=== PATIENT | female | born 1970 | race Caucasian/White ===

== ENCOUNTER 2018-03-15 16:21 | Emergency (ER) | payer OTHER ==
[~2018-03-15] VITALS: Ht 149.9 cm; Wt 96.6 kg
[~2018-03-15 16:21] MED LIST: VALS80TA2 PO
[2018-03-15 16:31] VITALS: BP_SYST 146
[2018-03-15] MEDS: ONDANSETRON HCL 4 MG/2 ML VIAL IVP ONE (17:11)
[2018-03-15] MEDS: KETOROLAC TROMETHAMINE 30 MG VIAL IVP ONE (17:12)
[2018-03-15] MEDS: NACL 0.9% 1,000 ML IV ONE (17:12)
[2018-03-15 17:42] LABS: CALCIUM 8.9 mg/dL (8.4-11.0); CREATININE 0.78 mg/dL (0.55-1.30); POTASSIUM 3.7 mmol/L (3.5-5.1)
[2018-03-15 17:46] LABS: ALBUMIN 3.7 g/dL (3.4-4.8); TOTAL BILIRUBIN 0.3 mg/dL (0.0-1.0)
[2018-03-15 18:08] LABS: BASOPHILS # (AUTO) 0.1 K/uL (0.0-0.2); EOSINOPHILS # (AUTO) 0.2 K/uL (0.0-0.4); HEMATOCRIT 43.2 % (36-48); MEAN CORPUSCULAR VOLUME 91 fL (79.0-98.0); MONOCYTES # (AUTO) 0.4 K/uL (0.0-1.0); NEUTROPHILS # (AUTO) 5.3 K/uL (1.8-7.7); RED BLOOD CELL COUNT(AUTO) 4.77 MIL/uL (4.2-6.2)
[2018-03-15 18:18] LABS: BASOPHILS % (AUTO) 1.5 % (0.0-2.0); EOSINOPHILS % (AUTO) 2.1 % (0.0-4.0); HEMOGLOBIN 14.2 g/dL (12.0-16.0); LYMPHOCYTES # (AUTO) 2.3 K/uL (1.0-5.5); LYMPHOCYTES % (AUTO) 27.9 % (20.5-51.5); MEAN CORPUSCULAR HEMOGLOBIN 30 pg (27-31); MEAN CORPUSCULAR HGB CONC 33 % (32-36); MONOCYTES % (AUTO) 5.3 % (1.7-9.3); NEUTROPHILS % (AUTO) 63.2 % (40.0-70.0); PLATELET COUNT (AUTO) 336 K/uL (130-430); WHITE BLOOD COUNT (AUTO) 8.3 K/uL (4.8-10.8)
[2018-03-15] MEDS: MORPHINE 2 MG/ML INJ. SYRINGE IVP ONE (18:28)
[2018-03-15] MEDS ORDERED: MORPHINE 4 MG/ML INJ. SYRINGE ONE (18:33)
[2018-03-15 19:35] VITALS: BP_SYST 137
== END 2018-03-15 19:35 | disposition home or self-care (01) ==
LOC: SED 16:21
DX: R10.13 Epigastric pain (principal); I10 Essential (primary) hypertension; Z90.49 Acquired absence of other specified parts of digestive tract; Z90.710 Acquired absence of both cervix and uterus; Z88.5 Allergy status to narcotic agent
CPT/HCPCS: 36415; 74176; 80053; 81025; 83690; 85025; 96374; 96375; 99284; J1885; J2270; J2405; J7030

== ENCOUNTER 2018-12-18 17:51 | Inpatient (IN) | payer OTHER ==
[~2018-12-18] VITALS: Ht 149.9 cm; Wt 99.8 kg
[2018-12-18 17:56] VITALS: BP_SYST 148
--- NOTE | 2018-12-18 18:26 | NUR ---
Patient to ER bed 04 to gown for evaluation. Side rails up.
[2018-12-18 18:30] LABS: BASOPHILS % (AUTO) 0.4 % (0.0-2.0); EOSINOPHILS # (AUTO) 0.3 K/uL (0.0-0.4); EOSINOPHILS % (AUTO) 3.3 % (0.0-4.0); HEMATOCRIT 40.1 % (36-48); HEMOGLOBIN 13.5 g/dL (12.0-16.0); LYMPHOCYTES # (AUTO) 2.8 K/uL (1.0-5.5); LYMPHOCYTES % (AUTO) 35.6 % (20.5-51.5); MEAN CORPUSCULAR HEMOGLOBIN 30 pg (27-31); MEAN CORPUSCULAR HGB CONC 34 % (32-36); MEAN CORPUSCULAR VOLUME 89 fL (79.0-98.0); MONOCYTES # (AUTO) 0.4 K/uL (0.0-1.0); MONOCYTES % (AUTO) 5.7 % (1.7-9.3); NEUTROPHILS # (AUTO) 4.3 K/uL (1.8-7.7); PLATELET COUNT (AUTO) 297 K/uL (130-430); RED BLOOD CELL COUNT(AUTO) 4.52 MIL/uL (4.2-6.2); RED CELL DISTRIBUTION WIDTH 13.9 % (9.0-15.0); WHITE BLOOD COUNT (AUTO) 7.8 K/uL (4.8-10.8)
[2018-12-18 18:45] LABS: CALCIUM 9.2 mg/dL (8.4-11.0); CREATININE 1.02 mg/dL (0.55-1.30); POTASSIUM 3.3 mmol/L (3.5-5.1)
[2018-12-18 18:59] LABS: ALBUMIN 3.8 g/dL (3.4-4.8); TOTAL BILIRUBIN 0.3 mg/dL (0.0-1.0)
--- NOTE | 2018-12-18 19:05 | NUR ---
Received report from STONE Villagomez. All care endorsed.
[2018-12-18 19:24] LABS: CKMB RELATIVE INDEX 0.1 (0.0-2.9); CREATINE KINASE MB 4.3 ng/mL (0-3.6)
--- NOTE | 2018-12-18 20:20 | NUR ---
Pt complains of bilateral calf pain since Wednesday. Pt states she forget her phone and started to jog and noticed that both her calves started to have pain. Since then, pain has gotten worse and toes are numb. Pt states right leg is worse than left. Pt used a cane to ambulate to ED. No other injuries/complaints per patient or noted.
--- NOTE | 2018-12-18 20:25 | NUR ---
ER Dr. Weldon at bedside examining patient.
[2018-12-18] MEDS ORDERED: ACETAMINOPHEN 500 MG TABLET PO ONE (20:30)
[2018-12-18] MEDS ORDERED: NACL 0.9% 1,000 ML IV ONE (20:30)
--- NOTE | 2018-12-18 20:47 | NUR ---
Medications were given, pt tolerated well. No adverse reaction, will continue to monitor.
--- NOTE | 2018-12-18 21:25 | NUR ---
patient went to CT in stable condition.
--- NOTE | 2018-12-18 21:40 | NUR ---
Pt returned from CT in stable condition.
--- NOTE | 2018-12-18 22:53 | NUR ---
Patient wanted to speak with doctor in regards to results of CT and labs. Pt also asked for IV to be discontinued since fluids were done. IV d/c. No bleeding noted. Pt tolerated well.
[2018-12-18 23:05] LABS: CKMB RELATIVE INDEX 0.1 (0.0-2.9); CREATINE KINASE MB 4.3 ng/mL (0-3.6)
--- NOTE | 2018-12-18 23:21 | NUR ---
Dr. Weldon speaking with patient explaining results.
[2018-12-18] MEDS ORDERED: HYDR25TA4 PO (23:31)
[2018-12-18] MEDS ORDERED: LOSA25TA3 PO (23:31)
--- NOTE | 2018-12-19 01:05 | NUR ---
Patient will be admitted to care of Dr. Marti. Admitted to Telemetry unit. Will go to room 117 B. Belongings list completed. Summary report printed. Report will be given at bedside.
--- NOTE | 2018-12-19 01:05 | NUR ---
Transfer to Telemetry via ACLS protocol. Licensed nurse present. IV present no signs or symptoms of infiltration.
--- NOTE | 2018-12-19 01:13 | NUR ---
Admission Note Received patient from ER with diagnosis of Rhabdomyolysis. Initial Plan of Care discussed-patient verbalized understanding. Oriented to room, call light, pain management and safety.
[2018-12-19 01:22] VITALS: BP_SYST 132
[2018-12-19] MEDS: NACL 0.9% 1,000 ML IV SCH ×3 (01:54→20:34)
--- NOTE | 2018-12-19 01:54 | NUR ---
PAGED PAGING THE [facility] PHYSICIAN DR. ROBERTSON, SPOKE WITH
--- NOTE | 2018-12-19 02:00 | NUR ---
ADMISSION ASSESSMENT DONE. ROUTINE ADMISSION CARE PROVIDED. PLAN OF CARES DISCUSSED WITH UNDERSTANDING. WILL CALL MD FOR PAIN MEDICINES. CALL LIGHT WITHIN REACH. BED IN LOW POSITION. SINUS RHYTHM ON TELEMONITOR .WILL MONITOR CLOSELY.
--- NOTE | 2018-12-19 02:10 | NUR ---
DR. ROBERTSON ANSWERED PAGE. REPORTED PATIENT HAS SEVERE PAIN ON BOTH CALFS RT.> LEFT WITH ORDERS.
[2018-12-19] MEDS ORDERED: ACETAMINOPHEN 325 MG TABLET PO PRN (02:15)
[2018-12-19] MEDS ORDERED: ACETAMINOPHEN 500 MG TABLET PO PRN (02:15)
[2018-12-19] MEDS ORDERED: MORPHINE 2 MG/ML INJ. SYRINGE IVP PRN (02:15)
[2018-12-19] MEDS ORDERED: POTASSIUM CHLORIDE 20 MEQ TAB.PRT.SR PO ONE (02:30)
[2018-12-19] MEDS ORDERED: ONDANSETRON HCL 4 MG/2 ML VIAL IVP PRN (02:45)
--- NOTE | 2018-12-19 02:55 | NUR ---
pain: complain of damon calf pain rt.>left, level 9/10. morphine 2mg iv given.
--- NOTE | 2018-12-19 04:00 | NUR ---
patient resting well. ivf infusing, site clear.
[2018-12-19 04:45] VITALS: BP_SYST 138
--- NOTE | 2018-12-19 06:20 | NUR ---
closing: slept at long intervals. has tolerable pain this am. vital signs stable. hourly to q 2 hrly rounds done. all needs were attended. will endorse care to am rn.
[2018-12-19 08:00] VITALS: BP_SYST 126
--- NOTE | 2018-12-19 08:00 | NUR ---
Initial Note-Pt awake, alert, and oriented. Pain controlled at this time. Assisted pt to restroom using hospital walker. Gait is steady, walking only on toes on the right foot. Pt has cane from home at bedside. Safety precautions in place, bed in lowest position, call light within reach and encourage pt to use for assistance.
[2018-12-19] MEDS ORDERED: NACL 0.9% 1,000 ML IV ONE (10:00)
[2018-12-19] MEDS ORDERED: LOSARTAN POTASSIUM 25 MG TABLET PO ONE (10:15)
[2018-12-19] MEDS ORDERED: PANTOPRAZOLE SODIUM 40 MG TAB PO ONE (10:15)
--- NOTE | 2018-12-19 10:46 | NUR ---
Notes-Pt awake, resting in bed. Seen by Dr. Soto at bedside. Administered scheduled medications. No acute distress noted.
[2018-12-19 11:09] LABS: ALBUMIN 3.1 g/dL (3.4-4.8); CALCIUM 8.3 mg/dL (8.4-11.0); CREATININE 0.84 mg/dL (0.55-1.30); POTASSIUM 3.5 mmol/L (3.5-5.1); TOTAL BILIRUBIN 0.3 mg/dL (0.0-1.0)
[2018-12-19 11:52] LABS: CKMB RELATIVE INDEX 0.1 (0.0-2.9); CREATINE KINASE MB 5.4 ng/mL (0-3.6)
--- NOTE | 2018-12-19 12:00 | NUR ---
Notes-Pt awake in high fowlers position. Pt speaking on cell phone. Denies any pain or discomfort at this time. Will continue to monitor.
[2018-12-19 12:27] VITALS: BP_SYST 112
--- NOTE | 2018-12-19 14:47 | NUR ---
Notes-Pt awake, in high fowlers position watching television. Pt is complaining of moderate pain in lower right calf. Administered PRN extra strength tylenol. Will continue to monitor.
[2018-12-19 17:07] VITALS: BP_SYST 107
--- NOTE | 2018-12-19 18:34 | NUR ---
Closing Note-Pt awake, resting in bed watching television. Pain controlled at this time. No acute distress noted. Safety precautions in place, bed in lowest position, call light within reach and encourage pt to use for assistance. Walker at bedside. Will continue to monitor until pt care is endorsed to shift commander nurse.
--- NOTE | 2018-12-19 19:52 | NUR ---
Initial note: Received report from daysraadft RN. Patient is awake, watching TV in bed. Alert and oriented x4. No acute distress, tolerating 2L NC. IV site to right hand is patent and benign, receiving IV fluids well. Call light is with patient. Safety and fall precautions in place. Will continue with plan of care.
[2018-12-19 20:00] VITALS: BP_SYST 115
--- NOTE | 2018-12-19 22:59 | NUR ---
Rounds: Patient is awake, no distress noted. Even and unlabored respirations on room air. IV fluids infusing as ordered, no infiltration noted. Call light is with patient. Will continue to monitor.
[2018-12-20 00:48] VITALS: BP_SYST 113
--- NOTE | 2018-12-20 01:48 | NUR ---
Rounds: Patient is resting comfortably in bed. No distress noted. Tolerating room air, breathing is even and unlabored. Call light with patient. Will continue monitoring.
--- NOTE | 2018-12-20 04:12 | NUR ---
Rounds: Patient is resting in bed, no distress. Even, unlabored breathing on room air. IV fluids infusing as ordered. Call light with patient. Will continue monitoring.
[2018-12-20] MEDS: NACL 0.9% 1,000 ML IV SCH (04:26)
--- NOTE | 2018-12-20 06:01 | NUR ---
Closing note: Patient is sleeping in bed. No acute distress. Even, unlabored breathing on room air. IV site to right hand is patent, benign, receiving IV fluids per MD order. All needs met. Safety and fall precautions in place. Hourly rounding performed throughout shift. Will endorse care to dayshift RN.
[2018-12-20 06:17] LABS: ALANINE AMINOTRANSFERASE 58 U/L (12-78); ALBUMIN 2.8 g/dL (3.4-4.8); ASPARTATE AMINOTRANSFERASE 104 U/L (10-37); CALCIUM 8.4 mg/dL (8.4-11.0); CHLORIDE 110 mmol/L (98-107); CREATININE 0.86 mg/dL (0.55-1.30); GLUCOSE 94 mg/dL (70-99); POTASSIUM 3.6 mmol/L (3.5-5.1); SODIUM SERUM 140 mmol/L (136-145); TOTAL BILIRUBIN 0.3 mg/dL (0.0-1.0); UREA NITROGEN, BLOOD 10 mg/dL (8-21)
[2018-12-20 06:21] LABS: ANION GAP < 3 (5-15); GFR AFRICAN AMERICAN 90 mL/min (>90)
[2018-12-20 06:34] LABS: BASOPHILS % (AUTO) 0.3 % (0.0-2.0); EOSINOPHILS # (AUTO) 0.3 K/uL (0.0-0.4); EOSINOPHILS % (AUTO) 3.8 % (0.0-4.0); HEMATOCRIT 35.2 % (36-48); LYMPHOCYTES # (AUTO) 2.5 K/uL (1.0-5.5); LYMPHOCYTES % (AUTO) 36.8 % (20.5-51.5); MEAN CORPUSCULAR HEMOGLOBIN 31 pg (27-31); MEAN CORPUSCULAR HGB CONC 34 % (32-36); MEAN CORPUSCULAR VOLUME 90 fL (79.0-98.0); MONOCYTES # (AUTO) 0.4 K/uL (0.0-1.0); MONOCYTES % (AUTO) 6.1 % (1.7-9.3); NEUTROPHILS # (AUTO) 3.6 K/uL (1.8-7.7); PLATELET COUNT (AUTO) 241 K/uL (130-430); RED BLOOD CELL COUNT(AUTO) 3.92 MIL/uL (4.2-6.2); RED CELL DISTRIBUTION WIDTH 13.5 % (9.0-15.0); WHITE BLOOD COUNT (AUTO) 6.7 K/uL (4.8-10.8)
[2018-12-20 06:48] LABS: CKMB RELATIVE INDEX 0.1 (0.0-2.9); CREATINE KINASE MB 4.4 ng/mL (0-3.6)
[2018-12-20 07:53] VITALS: BP_SYST 119
--- NOTE | 2018-12-20 08:00 | NUR ---
AM NOTES: Received patient alert,awake, oriented.no s/s of distress, stated bilateral foot still numb, weakness.ivf infusing well site patent left hand #[id number]. no infiltration or swelling noted. vital sign stable,afebrile. informed about the POC. verbalized understanding. encourage to call when assistance needed. bed is low and lock position. call light within reach. will monitor.
[2018-12-20] MEDS: PANTOPRAZOLE SODIUM 40 MG TAB PO SCH (09:23)
[2018-12-20] MEDS: LOSARTAN POTASSIUM 25 MG TABLET PO SCH (09:23)
--- NOTE | 2018-12-20 10:00 | NUR ---
MD ROUNDS: seen by dr. siegel at the bedside.
--- NOTE | 2018-12-20 10:18 | NUR ---
CONSULTATION PAGED REASON FOR CONSULTATION:RHABDHO WAS CONSULT CALLED?Y PERSON WHO WAS NOTIFIED:ANIA CONSULTING PHYSICIAN:[facility] PT SPECIALTY:[facility] PT PHONE NUMBER:[phone] REQUESTING PHYSICIAN:ERIKA AGUDELO
[2018-12-20] MEDS: NACL 0.9% IV SCH ×2 (11:04→20:52)
[2018-12-20] MEDS: JECT IV SCH ×2 (11:04→20:52)
[2018-12-20] MEDS: SODIUM BICARBONATE 8.4% IV SCH ×2 (11:04→20:52)
[2018-12-20 12:15] VITALS: BP_SYST 118
--- NOTE | 2018-12-20 15:00 | NUR ---
transferred to med/ surg status.
[2018-12-20 16:50] VITALS: BP_SYST 116
--- NOTE | 2018-12-20 18:59 | NUR ---
all needs mets. no significant changes of condition noted. vital sign stable, afebrile. patient verbalized numbness and pain dull. tolerable, able to ambulate with help of walker.ivf infusing well site patent. no swelling or infiltration noted.
--- NOTE | 2018-12-20 19:30 | NUR ---
Opening notes Received report. Patient is resting in bed, no signs of distress noted. Breathing even and unlabored. IV patent and intact, infusing fluids. No needs at this time. Call light with the patient. Safety precautions in place.
[2018-12-20 20:00] VITALS: BP_SYST 132
--- NOTE | 2018-12-20 22:00 | NUR ---
Resting Patient resting in bed, talking to family. No signs of distress noted. Breathing even and unlabored. IVF infusing well. Provided patient with sandwich and apple juice. No other needs. Call light with the patient. Safety precautions in place.
--- NOTE | 2018-12-21 | NUR ---
Sleeping VSS. No signs of distress noted. Breathing even and unlabored. IVF infusing well. Call light with the patient. Safety precautions in place.
[2018-12-21 00:05] VITALS: BP_SYST 130
--- NOTE | 2018-12-21 02:34 | NUR ---
Sleeping No signs of distress noted. Breathing is even and unlabored. IVF infusing well. Call light with the patient. Safety precautions in place.
[2018-12-21] MEDS: SODIUM BICARBONATE 8.4% IV SCH (03:04)
[2018-12-21] MEDS: NACL 0.9% IV SCH (03:04)
[2018-12-21] MEDS: JECT IV SCH (03:04)
--- NOTE | 2018-12-21 04:30 | NUR ---
Sleeping No signs of distress noted. Breathing even and unlabored. IVF infusing well. Call light with the patient. Safety precautions in place.
--- NOTE | 2018-12-21 06:33 | NUR ---
Closing notes Patient resting comfortably in bed. No signs of distress noted. Breathing even and unlabored. IV patent and intact, infusing fluids. All needs met throughout the shift. Call light with the patient. Safety precautions in place. Will endorse care to day shift RN.
--- NOTE | 2018-12-21 07:35 | NUR ---
opening note patient is sitting in chair, A&Ox4, assessment completed, educated carton maker light system and plan of care, patient verbalized understanding, patient denies any pain at this time, visualized patient walking to the bathroom and she was steady, no needs addressed at this time, fall/safety precautions in place, IV fluids running.
[2018-12-21 08:05] VITALS: BP_SYST 130
[2018-12-21] MEDS: LOSARTAN POTASSIUM 25 MG TABLET PO SCH (08:21)
[2018-12-21] MEDS: PANTOPRAZOLE SODIUM 40 MG TAB PO SCH (08:21)
--- NOTE | 2018-12-21 09:15 | NUR ---
Dr Aidan adrian informed me that he will ordered lab draws for the patient, I informed the patient about this and she verbalized understanding.
[2018-12-21 09:44] LABS: HEMOGLOBIN 12.4 g/dL (12.0-16.0); MEAN CORPUSCULAR HEMOGLOBIN 30 pg (27-31); MEAN CORPUSCULAR VOLUME 89 fL (79.0-98.0); RED CELL DISTRIBUTION WIDTH 13.8 % (9.0-15.0); WHITE BLOOD COUNT (AUTO) 6.6 K/uL (4.8-10.8)
[2018-12-21 09:52] LABS: BASOPHILS % (AUTO) 0.4 % (0.0-2.0); CALCIUM 8.1 mg/dL (8.4-11.0); CREATININE 0.87 mg/dL (0.55-1.30); EOSINOPHILS # (AUTO) 0.2 K/uL (0.0-0.4); EOSINOPHILS % (AUTO) 3.3 % (0.0-4.0); HEMATOCRIT 36.5 % (36-48); LYMPHOCYTES # (AUTO) 1.8 K/uL (1.0-5.5); LYMPHOCYTES % (AUTO) 27.8 % (20.5-51.5); MEAN CORPUSCULAR HGB CONC 34 % (32-36); MONOCYTES # (AUTO) 0.4 K/uL (0.0-1.0); MONOCYTES % (AUTO) 6.5 % (1.7-9.3); NEUTROPHILS # (AUTO) 4.1 K/uL (1.8-7.7); PLATELET COUNT (AUTO) 262 K/uL (130-430); POTASSIUM 3.4 mmol/L (3.5-5.1); RED BLOOD CELL COUNT(AUTO) 4.09 MIL/uL (4.2-6.2)
[2018-12-21 10:18] LABS: ALBUMIN 3.2 g/dL (3.4-4.8); TOTAL BILIRUBIN 0.3 mg/dL (0.0-1.0)
[2018-12-21 10:22] LABS: CKMB RELATIVE INDEX 0.1 (0.0-2.9); CREATINE KINASE MB 2.4 ng/mL (0-3.6)
[2018-12-21] MEDS ORDERED: POTASSIUM CHLORIDE 20 MEQ TAB.PRT.SR PO ONE (10:30)
[2018-12-21 10:53] VITALS: BP_SYST 130
== END 2018-12-21 12:20 | disposition home or self-care (01) | DRG 558 ==
LOC: SED 18:51 → STU 12-19 00:34 → SMU 12-20 15:21
PROVIDERS: ADMIT Internal Medicine Hospice and Palliative Medicine; ATTEND Internal Medicine Hospice and Palliative Medicine
DX: M62.82 Rhabdomyolysis (principal); Z68.41 Body mass index [BMI] 40.0-44.9, adult; E66.01 Morbid (severe) obesity due to excess calories; I10 Essential (primary) hypertension; Z90.49 Acquired absence of other specified parts of digestive tract; Z90.710 Acquired absence of both cervix and uterus; Z79.899 Other long term (current) drug therapy; Z88.5 Allergy status to narcotic agent
CPT/HCPCS: 36415; 73700-TC; 80053; 82550-TC; 82553-TC; 84484; 85025; 85379; 85610-TC; 85730-TC; 93971; 99285; G0378; J2270; J7030